=== PATIENT | female | born 1945 | race Caucasian/White ===

== ENCOUNTER 2020-05-31 15:21 | Outpatient (CLI) | payer MEDICARE, BC ==
--- NOTE | 2020-05-31 16:22 | CT ---
Exam: Noncontrast chest CT; CT lung scan low dose HISTORY:Low-dose screening lung CT for 1 pack a day smoker. Plus years smoking. Nicotine dependence. COMPARISON: None TECHNIQUE: Low-dose screening lung CT is performed utilizing institutional protocol FINDINGS: Lung screening specific (LUNG-RADS): Category 1. Negative exam. No evidence of suspicious mass or nod ule. No evidence of spiculation. Potential significant incidentals (lung RADS category S): None Pulmonary incidentals:Extensive emphysematous changes. Tiny blebs and bullae are noted. Calcified gra nuloma in the right lower lobe. Scattered scarring and atelectasis. Other incidentals: There are coronary calcifications. Atherosclerosis of the aorta. Cholelithiasis. P robable bilateral adrenal gland hyperplasia, incompletely evaluated IMPRESSION: 1. Lung RADS category 1. Negative exam. 2. Lung Rask category S: Negative. No new or unknown potential significant incidental findings requir ing urgent additional evaluation 3. Other incidentals as above. Probable bilateral adrenal gland hyperplasia, incompletely evaluated. Dedicated abdomen CT with contrast is recommended. Recommendation: Continued routine annual low-dose lung screening CT. Follow-up in one year. CODE T
== END 2020-05-31 15:22 | disposition home or self-care (01) ==
LOC: BICCT 15:21
PROVIDERS: ATTEND Internal Medicine Hematology & Oncology
DX: Z12.2 Encounter for screening for malignant neoplasm of respiratory organs (principal); F17.210 Nicotine dependence, cigarettes, uncomplicated
CPT/HCPCS: G0297

== ENCOUNTER 2021-11-07 14:08 | Outpatient (CLI) | payer MEDICARE, BC | END 2021-11-07 14:09 | disposition home or self-care (01) | LOC: ULT 14:08 | PROVIDERS: ATTEND Physician Assistant | DX: I73.9 Peripheral vascular disease, unspecified (principal); I70.202 Unspecified atherosclerosis of native arteries of extremities, left leg | CPT/HCPCS: 93922; 93923 ==

== ENCOUNTER 2021-11-08 14:44 | Outpatient (CLI) | payer MEDICARE, BC | END 2021-11-08 14:45 | disposition home or self-care (01) | LOC: SCSMRI 14:44 | PROVIDERS: ATTEND Physician Assistant | DX: S34.10 Unspecified injury to lumbar spinal cord (principal); M51.16 Intervertebral disc disorders with radiculopathy, lumbar region; R20.9 Unspecified disturbances of skin sensation; M47.26 Other spondylosis with radiculopathy, lumbar region; M43.16 Spondylolisthesis, lumbar region; M48.061 Spinal stenosis, lumbar region without neurogenic claudication | CPT/HCPCS: 72148 ==

== ENCOUNTER 2021-11-25 08:31 | Outpatient (CLI) | payer MEDICARE, BC ==
[2021-11-25] MEDS ORDERED: Iopamidol 370 76% 100 ML VIAL ONE (16:01)
== END 2021-11-25 08:32 | disposition home or self-care (01) ==
LOC: CT 08:31
PROVIDERS: ATTEND Thoracic Surgery (Cardiothoracic Vascular Surgery)
DX: I73.9 Peripheral vascular disease, unspecified (principal); I71.4 Abdominal aortic aneurysm, without rupture; I77.1 Stricture of artery; K31.4 Gastric diverticulum; E27.8 Other specified disorders of adrenal gland
CPT/HCPCS: 75635; 82565

== ENCOUNTER 2021-11-29 15:45 | Inpatient (IN) | payer MEDICARE, BC ==
[2021-12-01 12:27] VITALS: BMI 21.8
[2021-12-02] MEDS ORDERED: Heparin 5,000 UNITS/ML VIAL ONE (06:28)
[2021-12-02] MEDS ORDERED: Protamine Sulfate 50 MG/5 ML VIAL ONE (06:28)
[2021-12-02] MEDS ORDERED: EPINEPHrine 1 MG/ML AMP ONE (06:28)
[2021-12-02] MEDS ORDERED: Bupivacaine PF 0.5% 30 ML VIAL ONE (06:28)
[2021-12-02] MEDS ORDERED: Dexamethasone 4 mg/ml Vial ONE (06:28)
[2021-12-02] MEDS ORDERED: fentaNYL Citrate/PF 100 MCG/2 ML SYRINGE ONE (06:50)
[2021-12-02] MEDS ORDERED: Lidocaine 1% MPF 2 ML VIAL ONE (07:03)
[2021-12-02] MEDS ORDERED: CEFAZOLIN 2 GM VIAL ONE (07:20)
[2021-12-02] MEDS ORDERED: Sodium Chloride 0.9% 100 ML ONE (07:20)
[2021-12-02] MEDS ORDERED: Glycopyrrolate 0.2 MG/ML 5 ML SYRINGE ONE (07:39)
[2021-12-02] MEDS ORDERED: Dexamethasone 20 MG/5 ML VIAL ONE (07:39)
[2021-12-02] MEDS ORDERED: Ondansetron PF 4 MG/2 ML Vial ONE ×2 (07:39→10:23)
[2021-12-02] MEDS ORDERED: Lidocaine 1% PF 5 ML VIAL ONE (07:39)
[2021-12-02] MEDS ORDERED: Rocuronium Bromide 10 MG/ML (10ML VIAL) ONE (07:39)
[2021-12-02] MEDS ORDERED: PROPOFOL 200 MG/20 ML VIAL ONE (07:39)
[2021-12-02] MEDS ORDERED: Fentanyl 100 MCG/2 ML VIAL ONE ×2 (09:58→10:25)
[2021-12-02] MEDS ORDERED: Ibuprofen 200 MG TAB PO PRN (10:13)
[2021-12-02] MEDS ORDERED: Fentanyl 100 MCG/2 ML VIAL SLOW IVP PRN (10:13)
[2021-12-02] MEDS ORDERED: DEXTROSE IVPB SCH (10:13)
[2021-12-02] MEDS ORDERED: traMADol HCl 50 MG TAB PO PRN (10:13)
[2021-12-02] MEDS ORDERED: CEFAZOLIN IVPB SCH (10:13)
[2021-12-02] MEDS ORDERED: Promethazine HCl 25 MG/ML VIAL ONE (11:02)
[2021-12-02] MEDS: CEFAZOLIN 1 GM in Sodium Chloride 0.9% 100 ML IVPB SCH (18:01)
[2021-12-02] MEDS: Sodium Chloride 0.9% 1,000 ML IV SCH (18:02)
[2021-12-02] MEDS: Ondansetron PF 4 MG/2 ML Vial IVP PRN (20:08)
[2021-12-02] MEDS: traMADol HCl 50 MG TAB PO PRN (20:08)
[2021-12-02] MEDS: Atorvastatin Calcium 20 MG TAB PO SCH (20:08)
[2021-12-03] MEDS: CEFAZOLIN 1 GM in Sodium Chloride 0.9% 100 ML IVPB SCH ×2 (00:25→09:05)
[2021-12-03] MEDS: Clopidogrel Bisulfate 75 MG TAB PO SCH (09:04)
[2021-12-03] MEDS: Aspirin 81 mg Enteric Coated Tablet PO SCH (09:05)
[2021-12-03] MEDS: Sodium Chloride 0.9% 1,000 ML IV SCH ×2 (09:05→21:56)
[2021-12-03] MEDS: Ondansetron PF 4 MG/2 ML Vial IVP PRN ×2 (15:34→22:01)
[2021-12-03] MEDS: traMADol HCl 50 MG TAB PO PRN (15:34)
[2021-12-03] MEDS: Atorvastatin Calcium 20 MG TAB PO SCH (21:56)
[2021-12-03] MEDS: Fentanyl 100 MCG/2 ML VIAL SLOW IVP PRN (21:56)
[2021-12-04] MEDS: Fentanyl 100 MCG/2 ML VIAL SLOW IVP PRN (02:01)
[2021-12-04] MEDS: hydrALAZINE 20 MG/ML VIAL SLOW IVP PRN ×2 (02:03→12:18)
[2021-12-04] MEDS ORDERED: Ondansetron ODT 8 MG TAB SL PRN (08:50)
[2021-12-04] MEDS: Acetaminophen 325 MG TAB PO PRN ×3 (09:24→20:11)
[2021-12-04] MEDS: Clopidogrel Bisulfate 75 MG TAB PO SCH (09:24)
[2021-12-04] MEDS: Aspirin 81 mg Enteric Coated Tablet PO SCH (09:24)
[2021-12-04] MEDS: Atorvastatin Calcium 20 MG TAB PO SCH (20:11)
[2021-12-04] MEDS: traMADol HCl 50 MG TAB PO PRN (22:18)
[2021-12-05] MEDS: Clopidogrel Bisulfate 75 MG TAB PO SCH (07:51)
[2021-12-05] MEDS: Acetaminophen 325 MG TAB PO PRN (07:51)
[2021-12-05] MEDS: Aspirin 81 mg Enteric Coated Tablet PO SCH (07:52)
[2021-12-05] MEDS: hydrALAZINE 20 MG/ML VIAL SLOW IVP PRN (07:52)
[2021-12-05 08:13] VITALS: BP 174/74; TEMP 97.3
== END 2021-12-05 11:30 | disposition home or self-care (01) | DRG 254 ==
LOC: SURG A 12-02 06:02 → 2NO 12-02 16:25
PROVIDERS: ADMIT Thoracic Surgery (Cardiothoracic Vascular Surgery); ATTEND Thoracic Surgery (Cardiothoracic Vascular Surgery)
PROC: 04CK0ZZ Extirpation of Matter from Right Femoral Artery, Open Approach (ICD-10-PCS; principal; 2021-12-02)
PROC: 041K0JL Bypass Right Femoral Artery to Popliteal Artery with Synthetic Substitute, Open Approach (ICD-10-PCS; 2021-12-02)
DX: I70.221 Atherosclerosis of native arteries of extremities with rest pain, right leg (principal); F17.210 Nicotine dependence, cigarettes, uncomplicated
CPT/HCPCS: C1713; C1776; C1786; J0171; J0360; J0690; J1100; J1644; J2405; J2550; J2704; J2720; J3010; J3490; J7050; Q0162; S0020

== ENCOUNTER 2021-11-29 16:06 | Outpatient (CLI) | payer MEDICARE, BC ==
[2021-11-29 17:38] LABS: Hemoglobin 15.7 g/dL (12.0-15.5); Mean Corpuscular Hemoglobin 33.3 pg (27.0-33.0); Mean Corpuscular Volume 97.9 fl (81.6-98.3); Mean Platelet Volume 11.6 fl (7.4-10.4); Platelet Count 234 10x3/uL (150-450); RBC Distribution Width 13.3 % (11.5-14.5); Red Blood Cell (RBC) Count 4.72 10x6/uL (3.90-5.03); White Blood Cell (WBC) Count 9.1 10x3/uL (3.5-10.5)
[2021-11-29 17:58] LABS: Anion Gap 17 mmol/L (10-20); BUN (Urea Nitrogen) 15 mg/dL (9.8-20.1); Calc. Creatinine Clearance 0 mL/min (70-130); Carbon Dioxide 25 mmol/L (23-31); Chloride 104 mmol/L (98-107); Glucose 91 mg/dL (83-110); Potassium 4.3 mmol/L (3.5-5.1); Sodium 142 mmol/L (136-145)
[2021-11-30 07:41] LABS: SARS-CoV-2 PCR by NAA Not Detected (NotDetected)
== END 2021-11-29 16:07 | disposition home or self-care (01) ==
LOC: LABBT 16:06
PROVIDERS: ATTEND Thoracic Surgery (Cardiothoracic Vascular Surgery)
DX: Z01.812 Encounter for preprocedural laboratory examination (principal); Z20.822 Contact with and (suspected) exposure to COVID-19
CPT/HCPCS: 80048; 85027; U0003; U0005

== ENCOUNTER 2022-04-10 12:22 | Outpatient (CLI) | payer MEDICARE, BC | END 2022-04-10 12:23 | disposition home or self-care (01) | LOC: BICCT 12:22 | PROVIDERS: ATTEND Internal Medicine | DX: Z12.2 Encounter for screening for malignant neoplasm of respiratory organs (principal); F17.210 Nicotine dependence, cigarettes, uncomplicated; J43.2 Centrilobular emphysema; E27.8 Other specified disorders of adrenal gland | CPT/HCPCS: 71271 ==

== ENCOUNTER 2022-05-22 10:22 | Outpatient (CLI) | payer MEDICARE, BC ==
[~2022-05-22 10:22] MED LIST: Iopamidol 370 76% 100 ML VIAL ONE
== END 2022-05-22 10:23 | disposition home or self-care (01) ==
LOC: BICCT 10:22
PROVIDERS: ATTEND Thoracic Surgery (Cardiothoracic Vascular Surgery)
DX: I73.9 Peripheral vascular disease, unspecified (principal); I71.40 Abdominal aortic aneurysm, without rupture, unspecified; E27.8 Other specified disorders of adrenal gland; K31.4 Gastric diverticulum
CPT/HCPCS: 75635; 82565; Q9967

== ENCOUNTER 2022-06-08 06:24 | Day surgery (SDC) | payer MEDICARE, BC ==
[2022-06-07 10:56] VITALS: BMI 20.5
[2022-06-08] MEDS ORDERED: Famotidine/PF 20 mg/2ml Vial ONE (08:09)
[2022-06-08 08:32] LABS: SARS-CoV-2 NAA Rapid Test Not Detected (NotDetected)
[2022-06-08] MEDS ORDERED: fentaNYL PF 100 MCG/2 ML SYRINGE ONE ×2 (08:43)
[2022-06-08] MEDS ORDERED: Bupivacaine 0.25% HCL 30 ML VIAL ONE (08:46)
[2022-06-08] MEDS ORDERED: Lidocaine 1% (PF) 30 ML VIAL ONE (08:46)
[2022-06-08] MEDS ORDERED: Bupivacaine/Epinephrine 0.25% 30 ML VIAL ONE (08:46)
[2022-06-08] MEDS ORDERED: CEFAZOLIN 2 GM VIAL ONE (08:51)
[2022-06-08] MEDS ORDERED: Sodium Chloride 0.9% 100 ML ONE (08:51)
[2022-06-08] MEDS ORDERED: Dexamethasone 20 MG/5 ML VIAL ONE (08:54)
[2022-06-08] MEDS ORDERED: PROPOFOL 200 MG/20 ML VIAL ONE (08:54)
[2022-06-08] MEDS ORDERED: ePHEDrine 50 MG/ML VIAL ONE (08:54)
[2022-06-08] MEDS ORDERED: Ondansetron PF 4 MG/2 ML Vial ONE (08:54)
[2022-06-08] MEDS ORDERED: Albuterol Sulfate HFA (OR ONLY) ONE (08:54)
[2022-06-08] MEDS ORDERED: Bacitracin Zinc Ointment 30 gm TUBE ONE (09:47)
[2022-06-08] MEDS ORDERED: Labetalol HCl 100 MG/20 ML VIAL ONE (09:57)
[2022-06-08] MEDS ORDERED: FENTANYL 50 MCG/ML 1 ML VIAL ONE (10:55)
[2022-06-08] MEDS ORDERED: hydrALAZINE 20 MG/ML VIAL ONE (10:57)
[2022-06-08] MEDS ORDERED: HYDROcodone/Acetaminophen 5/325 mg Tablet ONE (11:46)
== END 2022-06-08 12:03 | disposition home or self-care (01) ==
LOC: SDC 06:24
PROVIDERS: ATTEND Surgery
PROC: 0YU50JZ Supplement Right Inguinal Region with Synthetic Substitute, Open Approach (ICD-10-PCS; principal; 2022-06-08)
PROC: 0YU70JZ Supplement Right Femoral Region with Synthetic Substitute, Open Approach (ICD-10-PCS; 2022-06-08)
PROC: 0HB1XZZ Excision of Face Skin, External Approach (ICD-10-PCS; 2022-06-08)
DX: K40.90 Unilateral inguinal hernia, without obstruction or gangrene, not specified as recurrent (principal); K41.90 Unilateral femoral hernia, without obstruction or gangrene, not specified as recurrent; L57.0 Actinic keratosis; I73.9 Peripheral vascular disease, unspecified; J44.9 Chronic obstructive pulmonary disease, unspecified; Z87.891 Personal history of nicotine dependence; Z79.02 Long term (current) use of antithrombotics/antiplatelets; Z79.2 Long term (current) use of antibiotics; Z79.82 Long term (current) use of aspirin; Z79.899 Other long term (current) drug therapy; Z88.2 Allergy status to sulfonamides; Z95.820 Peripheral vascular angioplasty status with implants and grafts; Z20.822 Contact with and (suspected) exposure to COVID-19
CPT/HCPCS: 11440; 49505; C1781; J3010; U0002; 88305; J0360; J1100; J2001; J2405; J2704; J3490; S0020; S0028

== ENCOUNTER 2023-04-30 14:10 | Outpatient (CLI) | payer MEDICARE, BC | END 2023-04-30 14:11 | disposition home or self-care (01) | LOC: BICCT 14:10 | PROVIDERS: ATTEND Internal Medicine | DX: Z12.2 Encounter for screening for malignant neoplasm of respiratory organs (principal); Z87.891 Personal history of nicotine dependence; D35.02 Benign neoplasm of left adrenal gland; D35.01 Benign neoplasm of right adrenal gland; J43.9 Emphysema, unspecified; J98.4 Other disorders of lung; J84.10 Pulmonary fibrosis, unspecified; I25.10 Atherosclerotic heart disease of native coronary artery without angina pectoris; I70.0 Atherosclerosis of aorta; K80.20 Calculus of gallbladder without cholecystitis without obstruction; M47.9 Spondylosis, unspecified | CPT/HCPCS: 71271 ==

== ENCOUNTER 2023-12-04 15:48 | Outpatient (CLI) | payer MEDICARE, BC ==
[2023-12-04 17:15] LABS: Hematocrit 39.9 % (34.9-44.5); Hemoglobin 14.2 g/dL (12.0-15.5); Mean Corpuscular HGB CONC 35.6 g/dL (32.0-36.0); Mean Corpuscular Hemoglobin 32.8 pg (27.0-33.0); Mean Corpuscular Volume 92.1 fL (81.6-98.3); Mean Platelet Volume 10.1 fL (7.4-10.4); Platelet Count 274 10x3/uL (150-450); RBC Distribution Width 12.5 % (11.5-14.5); Red Blood Cell (RBC) Count 4.33 10x6/uL (3.90-5.03); White Blood Cell (WBC) Count 8.4 10x3/uL (3.5-10.5)
[2023-12-04 17:42] LABS: Anion Gap 15 mmol/L (10-20); BUN (Urea Nitrogen) 13 mg/dL (9.8-20.1); Calc. Creatinine Clearance 0 mL/min (70-130); Calcium 9.3 mg/dL (7.8-10.44); Carbon Dioxide 26 mmol/L (23-31); Chloride 97 mmol/L (98-107); Estimated GFR 56; Glucose 106 mg/dL (83-110); Potassium 3.9 mmol/L (3.5-5.1); Sodium 134 mmol/L (136-145)
== END 2023-12-04 15:49 | disposition home or self-care (01) ==
LOC: LABBT 15:48
PROVIDERS: ATTEND Thoracic Surgery (Cardiothoracic Vascular Surgery)
DX: Z01.818 Encounter for other preprocedural examination (principal); I73.9 Peripheral vascular disease, unspecified
CPT/HCPCS: 80048; 85027; 93005; 93010